=== PATIENT | female | born 1975 | race Caucasian/White ===

== ENCOUNTER 2022-03-25 10:02 | Emergency (ER) | payer OTHER ==
[2022-03-25 10:20] VITALS: BP 114/79
--- NOTE | 2022-03-25 11:19 | ED Physician Documentation ---
PD HPI BACK PAIN - Stated complaint Stated Complaint: LOW BACK PAIN - Chief complaint Chief Complaint: Back Pain - History obtained from History obtained from: Patient - History of Present Illness Timing - onset: Yesterday (onset of low back pain and stiffness after doing leg lift exercises yesterday. Also is visiting her sister and is on different mattress on floor the past few weeks. No forceful injury. Having pain and stiffness more this morning.) Timing - duration: Days Timing - details: Gradual onset, Waxing and waning Location: Lower Quality: Pain, Spasm, Aching Associated symptoms: No: Fever, Weakness, Numbness Improves with: Rest Worsened by: Movement, Twisting Contributing factors: Twisting, Other (she believes due to sleeping on different mattress.). No: Trauma Similar symptoms before: Has not had sx before Recently seen: Not recently seen Review of Systems Constitutional: denies: Fever, Chills GI: denies: Abdominal Pain, Diarrhea Skin: denies: Rash, Lesions Neurologic: denies: Focal weakness, Numbness PD PAST MEDICAL HISTORY - Past Medical History Past Medical History: No - Present Medications Home Medications: Ambulatory Orders Medication Instructions Recorded Confirmed HYDROcod/ACETAM 5/325 [[place] 5/325] 1 ea PO Q6H PRN #18 tablet 03/25/22 Naproxen 500 mg PO BID #20 tab.sr 03/25/22 tiZANidine [Zanaflex] 4 mg PO Q8H PRN #25 tablet 03/25/22 - Allergies Allergies/Adverse Reactions: Allergies Allergy/AdvReac Type Severity Reaction Status Date / Time No Known Drug Allergies Allergy Verified 03/25/22 10:18 PD ED PE NORMAL - Vitals Vital signs reviewed: Yes - General General: Alert and oriented X 3, No acute distress, Well developed/nourished - Abdomen Abdomen: Soft, Non tender - Back Back: No CVA TTP, No spinal TTP, Other (tender right lower back iliac crest area and muscles. No midline tendrenss. ) - Derm Derm: Normal color, Warm and dry - Neuro Neuro: Alert and oriented X 3, No motor deficit, No sensory deficit, Other (normal patellar reflexes.) Results - Vitals Vitals: Oxygen O2 Source Room air PD MEDICAL DECISION MAKING - ED course Complexity details: considered differential (back pain without notable trauma and no red flags. Can treat with meds. Discussed general back pain guidelines with patient. ), d/w patient Departure - Departure Disposition: 01 Home, Self Care Clinical Impression: Acute low back pain Qualifiers: Back pain laterality: right Sciatica presence: without sciatica Qualified Code(s): M54.50 - Low back pain, unspecified Condition: Stable Record reviewed to determine appropriate education?: Yes Instructions: ED Sprain Strain Lumbar Prescriptions: Naproxen 500 mg PO BID #20 tab.sr HYDROcod/ACETAM 5/325 [[place] 5/325] 1 ea PO Q6H PRN #18 tablet PRN Reason: Pain tiZANidine [Zanaflex] 4 mg PO Q8H PRN #25 tablet PRN Reason: Spasms Comments: Heat and gentle stretching for the low back. Massage or chiropractic are good as well. No heavy lifting or activity for the next several days until improved. I would suggest anti-inflammatory such as naproxen twice daily with food for the next 7 to 10 days. Tizanidine muscle relaxant if needed for spasms and stiffness. To that add Tylenol every 4-6 hours if needed for pain or hydrocodone/acetaminophen if needed for worse pain. I sent your prescriptions to [facility] in [place]. Recheck if not improving well over the next several days and resolved over 4 to 5 days. He may have some element of back tightness and stiffness for even a week or 2. I am prescribing a short course of narcotic pain medication for you. These are potentially dangerous and addictive medications that should be used carefully. These medications may constipate you. Take an [id number] stool softener such as docusate twice daily with plenty of water while taking these medications. If you go 24 hours without a bowel movement, take [id number] MiraLAX, per package instructions. Do not drink or drive while taking these medications. If you received narcotic or sedating medications while in the emergency department do not drive for 24 hours. Store this medication in a safe, secure place and out of reach of children. It is a violation of federal law to give or sell this medication to another person or to use in a manner other than prescribed. The ED will not refill narcotic prescriptions, including prescriptions lost or stolen. You can dispose of unwanted medications at the [facility]'s office or at several pharmacies such as [facility]. Discharge Date/Time: 03/25/22 13:14
[2022-03-25] MEDS ORDERED: KETOROLAC 30 MG/ML VIAL IM STA (11:49)
[2022-03-25] MEDS ORDERED: HYDROmorphone 1 MG/ML CARPUJECT IM STA (11:49)
[2022-03-25] MEDS ORDERED: TRIAMCINOLONE 40 MG/ML VIAL IM STA (11:49)
[2022-03-25] MEDS ORDERED: DIPHENOX/ATROPINE 2.5/0.025 MG TABLET PO STA (13:00)
== END 2022-03-25 13:14 | disposition home or self-care (01) ==
LOC: ED 10:02
DX: M54.50 Low back pain, unspecified (principal)
CPT/HCPCS: 96372; 99282; 99283; J1170